=== PATIENT | male | born 1975 | race Two or more races ===

== ENCOUNTER 2017-03-13 11:23 | Day surgery (SDC) | payer OTHER, SELFPAY ==
[~2017-03-13] VITALS: Ht 188 cm; Wt 102.3 kg
[2017-03-13] MEDS ORDERED: TYLE325T5 PO (11:34)
[2017-03-13] MEDS ORDERED: NS 500 ML IV ONE (14:00)
[2017-03-13 14:07] LABS: INR 0.9
[2017-03-13 14:09] LABS: BASO % 0.4 % (0.0-1.0); EOS # 0.2 K/mm3 (0.0-0.50); EOS % 2.4 % (0.0-3.0); LARGE UNSTAINED CELL # 0.1 K/mm3 (0.0-0.4); LARGE UNSTAINED CELL % 0.7 % (0.0-4.0); LYMPH # 1.5 K/mm3 (1.5-4.5); LYMPH % 15.4 % (24.0-44.0); MEAN CORPUSCULAR HEMOGLOBIN 32.4 pg (27.0-33.0); MEAN CORPUSCULAR HGB CONC 34.2 g/dl (32.0-36.5); MEAN CORPUSCULAR VOLUME 94.7 fl (80.0-96.0); MONO # 0.4 K/mm3 (0.0-0.8); MONO % 4.2 % (0.0-5.0); NEUTROPHILS # 7.1 K/mm3 (1.8-7.7); NEUTROPHILS % 76.8 % (36.0-66.0); PLATELET COUNT, AUTOMATED 197 k/mm3 (150-450); RED CELL DISTRIBUTION WIDTH 12.8 % (11.5-14.5); WHITE BLOOD COUNT 9.2 K/mm3 (4.0-10.0)
[2017-03-13] MEDS ORDERED: MORPHINE 2 MG/ML 1ML SYRINGE IV ONE (14:15)
[2017-03-13 14:29] LABS: ALBUMIN 4.5 GM/DL (3.2-5.2); ALBUMIN/GLOBULIN RATIO 1.25 (1.00-1.93); ALKALINE PHOSPHATASE 55 U/L (45-117); ALT/SGPT 41 U/L (12-78); ANION GAP 9 MEQ/L (8-16); AST/SGOT 42 U/L (15-37); BILIRUBIN,DIRECT 0.1 MG/DL (0.0-0.2); BILIRUBIN,TOTAL 0.6 MG/DL (0.2-1.0); BLOOD UREA NITROGEN 9 MG/DL (7-18); CALCIUM LEVEL 8.4 MG/DL (8.5-10.1); CARBON DIOXIDE LEVEL 24 MEQ/L (21-32); CHLORIDE LEVEL 104 MEQ/L (98-107); CREATININE FOR GFR 0.75 MG/DL (0.70-1.30); GLOMERULAR FILTRATION RATE > 60.0 (>60); GLUCOSE, FASTING 96 MG/DL (70-105); POTASSIUM SERUM 3.7 MEQ/L (3.5-5.1); SODIUM LEVEL 137 MEQ/L (136-145); TOTAL PROTEIN 8.1 GM/DL (6.4-8.2)
[2017-03-13] MEDS ORDERED: BACITRACIN PWD 50,000 UNITS VIAL As Ordered ONE (15:46)
--- NOTE | 2017-03-13 16:54 | SMCUROLCON ---
Urology Consultation General Date of Consultation 03/13/17 Reason For Consultation This patient is seen for Penile Problem. History of Present Illness This is a 41 y/o M w/ no significant PMH, who presented to the ER today w/ complaints of penile pain and swelling. He notes that while having intercourse w/ his partner last night he felt a pop and had the onset of severe pain and swelling. He had almost immediate detumescence. He also noted blood coming from his urethral meatus. He waited to come in until today and since being in the ER he has had increased swelling and pain in the penis. All labs in the ER , including CBC, BMP, coags, and UA are unremarkable. Past Medical History Medical History None Surgical Hstory Bladder repair as a child Allergies Allergies: Coded Allergies: No Known Allergies (Unverified , 03/13/17) Review of Systems Constitutional: Denies: Chills, Fever, Malaise, Sweats, Weakness Eyes: Denies: Pain, Vision change ENT: Denies: Epistaxis, Head Aches, Sore Throat Skin: Denies: Breakdown, Lesions, Nail Changes, Rash Pulmonary: Denies: Cough, Dyspnea Cardiovascular: Denies Chest Pain, Denies Palpitations Gastrointestinal: Denies: Abdominal Pain, Nausea, Vomiting Genitourinary: Reports: Hematuria, Other Symptoms (penile pain and swelling) Hematologic: Denies: Bleeding Excessively, Bruising Musculoskeletal: Denies: Back Pain, Neck Pain Neurological: Denies: Change in Speech, Incoordination, Numbness, Weakness Psych: Reports: Mood Normal Physical Examination General Exam: : Alert: Cooperative ENT EXAM: : Atraumatic Chest Exam: : Clear to auscultation: Normal air movement Heart Exam: : Rate Normal: Regular Rhythm Abdomen Exam: : SoftNo: Tenderness Male Exam penoscrotal ecchymoses and edema; mildly tender to palpation; no blood at the meatus Skin Exam: : Nl turgor and temperature Neuro Exam: : Normal Speech Psych Exam: : Mental status NL: Mood NL Vital Signs/I&O Vital Signs Date Time Temp Pulse Resp B/P Pulse Ox O2 Delivery O2 Flow Rate FiO2 03/13/17 16:45 99.0 83 18 164/94 95 03/13/17 15:03 Room Air Laboratory Data 24H Labs Laboratory Tests 2 03/13/17 13:48: Activated Partial Thromboplast Time 28.3, Aspartate Amino Transf (AST/SGOT) 42H , Alanine Aminotransferase (ALT/SGPT) 41, Alkaline Phosphatase 55, Total Bilirubin 0.6, Direct Bilirubin 0.1, Albumin 4.5, Albumin/Globulin Ratio 1.25, Anion Gap 9, White Blood Count 9.2, Red Blood Count 4.40, Hemoglobin 14.2, Hematocrit 41.7L, Mean Corpuscular Volume 94.7, Mean Corpuscular Hemoglobin 32.4 , Mean Corpuscular Hemoglobin Concent 34.2, Red Cell Distribution Width 12.8, Platelet Count 197, Neutrophils (%) (Auto) 76.8H, Lymphocytes (%) (Auto) 15.4L, Monocytes (%) (Auto) 4.2, Eosinophils (%) (Auto) 2.4, Basophils (%) (Auto) 0.4, Neutrophils # (Auto) 7.1, Lymphocytes # (Auto) 1.5, Monocytes # (Auto) 0.4, Eosinophils # (Auto) 0.2, Basophils # (Auto) 0.0, Calcium Level 8.4L, Glomerular Filtration Rate > 60.0, Large Unclassified Cells # 0.1, Large Unclassified Cells % 0.7, Prothromb Time International Ratio 0.90, Prothrombin Time 12.3, Total Protein 8.1 03/13/17 14:59: Urine Amorphous Sediment , Urine Appearance CLEAR, Urine Color STRAW, Urine pH 5.0, Urine Specific [place] 1.005, Urine Protein NEGATIVE, Urine Glucose (UA) NEGATIVE, Urine Ketones TRACEH, Urine Urobilinogen 0.2, Urine Bilirubin NEGATIVE , Urine Leukocyte Esterase NEGATIVE, Urine Bacteria (Auto) NEGATIVE, Urine Blood 2+H, Urine Calcium Carbonate Cryst(Auto) , Urine Calcium Oxalate Cryst ( Auto) , Urine Calcium Phosphate Kathleen (Auto) , Urine Cellular Casts , Urine Cystine Crystals , Urine Granular Casts (Auto) , Urine Hyaline Casts (Auto) 0, Urine Leucine Crystals , Urine Mucus (Auto) , Urine Nitrite NEGATIVE, Urine Oval Fat Bodies (Auto) , Urine RBC (Auto) 0, Urine Renal Epithelial Cells , Urine Sperm (Auto) , Urine Squamous Epithelial Cells 0, Urine Transitional Epithelial Cells , Urine Trichomonas (Auto) , Urine Triple Phosphate Cryst (Auto ) , Urine Tyrosine Crystals , Urine Uric Acid Crystals (Auto) , Urine WBC (Auto ) 0, Urine Waxy Casts (Auto) , Urine Yeast-Like Cells (Auto) CBC/BMP Laboratory Tests 03/13/17 13:48 Red Blood Count 4.40, Mean Corpuscular Volume 94.7, Mean Corpuscular Hemoglobin 32.4, Mean Corpuscular Hemoglobin Concent 34.2, Red Cell Distribution Width 12.8 , Neutrophils (%) (Auto) 76.8 H, Lymphocytes (%) (Auto) 15.4 L, Monocytes (%) ( Auto) 4.2, Eosinophils (%) (Auto) 2.4, Basophils (%) (Auto) 0.4, Neutrophils # ( Auto) 7.1, Lymphocytes # (Auto) 1.5, Monocytes # (Auto) 0.4, Eosinophils # (Auto ) 0.2, Basophils # (Auto) 0.0 Assessment This is a 41 y/o M w/ penile swelling and pain. Given the patient's exam and history of how this happened, he likely has a penile fracture and urethral laceration. Plan - I recommended that we take the patient to the OR for penile degloving w/ closure of tunica albuginea, cystoscopy, possible repair of urethral laceration - after a discussion of the risks and benefits of the procedure, informed consent was signed - 2g ancef IV cash applications specialist to the OR - NPO until surgery YENNIFER PICKARD MD Mar 13, 2017 16:54
[2017-03-13] MEDS ORDERED: ceFAZolin 2 GM/D5W 50 ML IV BAG (J0690) As Ordered ONE (17:05)
[2017-03-13] MEDS ORDERED: dexameTHASONE 4 MG/ML 1ML VIAL (J1100) As Ordered ONE (17:38)
[2017-03-13] MEDS ORDERED: HYDROmorphone HCL 2 MG/ML 1ML VIAL (J1170) As Ordered ONE ×2 (17:38→18:58)
[2017-03-13] MEDS ORDERED: PROPOFOL 500 MG/50 ML VIAL As Ordered ONE (17:38)
[2017-03-13] MEDS ORDERED: MIDAZOLAM INJ 2 MG/2 ML VIAL (J2250) As Ordered ONE (17:38)
[2017-03-13] MEDS ORDERED: fentaNYL 100 MCG/2 ML INJECTION (J3010) As Ordered ONE ×2 (17:38→17:50)
[2017-03-13] MEDS ORDERED: ONDANSETRON 4MG/2ML VIAL (J2405) As Ordered ONE (18:24)
[2017-03-13] MEDS ORDERED: PERCOCET 5MG/325MG TAB PO PRN ×3 (19:15→19:30)
[2017-03-13] MEDS ORDERED: ONDANSETRON 4MG/2ML VIAL (J2405) IV PRN (19:15)
[2017-03-13] MEDS ORDERED: ACETAMINOPHEN TAB 650MG DOSE (2X325MG) PO PRN (19:15)
[2017-03-13] MEDS ORDERED: LR 1,000 ML IV SCH (19:30)
[2017-03-13] MEDS ORDERED: MORPHINE 2 MG/ML 1ML SYRINGE IV PRN (19:30)
[2017-03-13] MEDS ORDERED: fentaNYL 100 MCG/2 ML INJECTION (J3010) IV PRN (19:30)
[2017-03-13 19:50] VITALS: BP 158/99
[2017-03-13 20:20] VITALS: BP 153/93
[2017-03-13] MEDS ORDERED: diazePAM 5 MG TAB PO SCH (21:00)
[2017-03-13 21:20] VITALS: BP 149/86
[2017-03-13] MEDS: DOCUSATE SODIUM 100 MG CAP PO SCH (21:51)
[2017-03-13] MEDS: CEPHALEXIN 500 MG CAP PO SCH (21:51)
[2017-03-13 22:20] VITALS: BP 144/83
[2017-03-14 02:00] VITALS: BP 108/57
[2017-03-14 06:00] VITALS: BP 122/65
[2017-03-14] MEDS: CEPHALEXIN 500 MG CAP PO SCH ×2 (08:58→15:46)
[2017-03-14] MEDS: DOCUSATE SODIUM 100 MG CAP PO SCH (08:58)
--- NOTE | 2017-03-14 09:58 | IPNPDOC ---
Assessment/Plan Date Seen The patient was seen on 03/14/17. Patient Summary 41 y/o M POD1 s/p plastic operation of the penis w/ penile degloving and cystoscopy for penile fracture and urethral laceration. Doing well this morning. Plan/VTE VTE Prophylaxis Ordered?: Yes VTE Exclusion Mechanical Proph: N/A:VTE Prophy Ordered Plan/Urinary Catheter Urinary Catheter: Other Catheter: Reason for insertion/continuin: Other-document below (catheter needs to stay in to allow for healing of his urethral laceration) Plan - keep catheter to gravity - percocet prn pain - dressings to stay on for 1 more day - regular diet - social work consult - plan d/c home today w/ catheter in - patient will f/u tomorrow for dressing removal Subjective Review oF Systems Chief Complaint The patient is a 41-year-old male admitted with a reason for visit of Penile Problem. Events since Last Encounter No acute events o/n. Pain has been well-controlled w/ percocet. He denies irritation from the catheter. Objective Physical Examination General Exam: Alert, Cooperative, No Acute Distress Psych Exam: Mental status NL, Mood NL Other physical findings penoscrotal ecchymoses unchanged; Rita dressing in place w/ good glans capillary refill; catheter draining clear urine Vital Signs/I&O Vital Signs Date Time Temp Pulse Resp B/P (MAP) Pulse Ox O2 Delivery O2 Flow Rate FiO2 03/14/17 06:00 98.2 64 18 122/65 (84) 97 Room Air I&O- Last 24 Hours up to 6 AM 03/14/17 06:00 Intake Total 2040 ml Output Total 2260 ml Balance -220 ml Laboratory Data Labs 24H Laboratory Tests 2 03/13/17 13:48: White Blood Count 9.2, Red Blood Count 4.40, Hemoglobin 14.2, Hematocrit 41.7L, Mean Corpuscular Volume 94.7, Mean Corpuscular Hemoglobin 32.4, Mean Corpuscular Hemoglobin Concent 34.2, Red Cell Distribution Width 12.8, Platelet Count 197, Neutrophils (%) (Auto) 76.8H, Lymphocytes (%) (Auto) 15.4L, Monocytes (%) (Auto) 4.2, Eosinophils (%) (Auto) 2.4, Basophils (%) (Auto) 0.4, Neutrophils # (Auto) 7.1, Lymphocytes # (Auto) 1.5, Monocytes # (Auto) 0.4, Eosinophils # (Auto) 0.2, Basophils # (Auto) 0.0, Large Unclassified Cells % 0.7 , Large Unclassified Cells # 0.1, Prothrombin Time 12.3, Prothromb Time International Ratio 0.90, Activated Partial Thromboplast Time 28.3, Anion Gap 9 , Glomerular Filtration Rate > 60.0, Calcium Level 8.4L, Aspartate Amino Transf (AST/SGOT) 42H, Alanine Aminotransferase (ALT/SGPT) 41, Alkaline Phosphatase 55 , Total Bilirubin 0.6, Direct Bilirubin 0.1, Total Protein 8.1, Albumin 4.5, Albumin/Globulin Ratio 1.25 03/13/17 14:59: Urine Appearance CLEAR, Urine Color STRAW, Urine pH 5.0, Urine Specific [place] 1.005, Urine Protein NEGATIVE, Urine Glucose (UA) NEGATIVE, Urine Ketones TRACEH , Urine Urobilinogen 0.2, Urine Bilirubin NEGATIVE, Urine Leukocyte Esterase NEGATIVE, Urine Blood 2+H, Urine Nitrite NEGATIVE, Urine WBC (Auto) 0, Urine RBC (Auto) 0, Urine Hyaline Casts (Auto) 0, Urine Bacteria (Auto) NEGATIVE, Urine Squamous Epithelial Cells 0, Urine Transitional Epithelial Cells , Urine Renal Epithelial Cells , Urine Calcium Carbonate Cryst(Auto) , Urine Calcium Phosphate Kathleen (Auto) , Urine Calcium Oxalate Cryst (Auto) , Urine Leucine Crystals , Urine Cystine Crystals , Urine Uric Acid Crystals (Auto) , Urine Triple Phosphate Cryst (Auto) , Urine Tyrosine Crystals , Urine Amorphous Sediment , Urine Cellular Casts , Urine Granular Casts (Auto) , Urine Waxy Casts (Auto) , Urine Mucus (Auto) , Urine Trichomonas (Auto) , Urine Yeast-Like Cells (Auto) , Urine Sperm (Auto) , Urine Oval Fat Bodies (Auto) CBC/BMP Laboratory Tests 03/13/17 13:48 Red Blood Count 4.40, Mean Corpuscular Volume 94.7, Mean Corpuscular Hemoglobin 32.4, Mean Corpuscular Hemoglobin Concent 34.2, Red Cell Distribution Width 12.8 , Neutrophils (%) (Auto) 76.8 H, Lymphocytes (%) (Auto) 15.4 L, Monocytes (%) ( Auto) 4.2, Eosinophils (%) (Auto) 2.4, Basophils (%) (Auto) 0.4, Neutrophils # ( Auto) 7.1, Lymphocytes # (Auto) 1.5, Monocytes # (Auto) 0.4, Eosinophils # (Auto ) 0.2, Basophils # (Auto) 0.0 YENNIFER PICKARD MD Mar 14, 2017 09:58
[2017-03-14 14:00] VITALS: BP 148/97
--- NOTE | 2017-03-14 15:00 | RO ---
DATE OF PROCEDURE: 03/13/2017 PREPROCEDURE DIAGNOSIS: Penile fracture, urethral injury. POSTPROCEDURE DIAGNOSIS: Penile fracture, urethral injury. PROCEDURE: Plastic operation of the penis for injury, penile degloving, cystoscopy. SURGEON: Fredy Soto MD MARINE STRUCTURAL DESIGNER: None. ANESTHESIA: General. OPERATIVE INDICATIONS: This is a 41-year-old male who presents to the emergency room today with complaints of penile pain and swelling. He noted that while having sexual intercourse the day before, he felt a pop and immediately had detumescence with the onset of urethral bleeding and penile pain and swelling. Given the patient's history and his exam there is a significant concern for penile fracture as well as urethral injury. It was therefore, recommended that he be brought to the operating room for the above listed procedure. DESCRIPTION OF PROCEDURE: The patient was brought to the operating room, and general anesthesia was induced. Prophylactic antibiotics were infused. He was then placed in the supine position, prepped and draped in the usual sterile fashion. The first part of the procedure involved flexible cystoscopy. At this point, a flexible cystoscope was inserted into the urethral meatus and advanced forward. Within the distal penile urethra, there was an approximately 0.5 cm laceration seen at the 12-o'clock position. I advanced the cystoscope further into the urethra and into the bladder, and no additional urethral injuries were seen. There were no abnormalities in the bladder. I then pulled the cystoscope back out and looked at the injury again. Once again, it was approximately 0.5 cm in the distal penile urethra and it was noted to be at the 12-o'clock position. At this point, the cystoscope was removed and then a circumcising incision was made just proximal to the glans along the skin of the shaft. At this point, the skin of the shaft was dissected and was ultimately dissected away from the penis until the penis was completely degloved. At this point, the penis was then carefully examined and I could not locate a laceration on the tunica albuginea of the corporal bodies. I injected normal saline into one of the corporal bodies to given an artificial erection, and I did not see any saline come out of the corporal bodies. After carefully looking again and confirming that I could not see a laceration to the albuginea, I examined the urethra as well and I could not see a laceration from the outside of the urethra either. This was not surprising considering the laceration was at the 12-o'clock position, which is where the urethra sits in between the corporal bodies. I suspect that the tunica albuginea laceration is also in the location where the urethra sits nested in between the corporal bodies, and this is why I could not find the laceration during the procedure. I did not proceed to dissect the urethra away from the corporal bodies as I felt this could result in more potential damage than good. At this point, I checked for hemostasis and any areas of bleeding was controlled with electrocautery. I then pulled the skin of the shaft back up to the glans and then reapproximated the skin to the glans using interrupted #2-0 chromic sutures. These sutures were placed circumferentially around the glans. Once this was done , dressings were applied including a Rita wrapped around the penis and then a [place] dressing wrapped around the top of that. Once this was done, this marked the conclusion of the procedure. Of note, a #16-English Felder catheter was placed into the bladder after the cystoscopy was performed at the beginning of the procedure. This catheter was connected to gravity drainage and was left in at the end of the procedure. At this point, the patient was awakened from anesthesia and transported to the recovery room in stable condition. ESTIMATED BLOOD LOSS: 10 mL INTRAOPERATIVE COMPLICATIONS: None SPECIMENS: None PLAN: The patient's catheter will be left in place for approximately 2 weeks to allow healing of the urethral injury. Regarding the tunica albuginea laceration, this should also heal with time. I will take the dressings off in a few days and once again leave the catheter in for 2 weeks. I will followup with either cystoscopy or retrograde urethrogram to confirm that the urethral injury is healed. MELANIE
[2017-03-14] MEDS ORDERED: KEFL500C7 PO (16:22)
[2017-03-14] MEDS ORDERED: OXYC1TAB23 PO (16:22)
[2017-03-14] MEDS ORDERED: VALI5TAB PO (16:22)
== END 2017-03-14 16:47 | disposition home or self-care (01) ==
LOC: M ED 12:32 → M OROP 16:54 → M MSPAV 19:49 → M OROP 03-14 16:47
PROVIDERS: ATTEND Urology
DX: S39.840A Fracture of corpus cavernosum penis, initial encounter (principal); S37.30XA Unspecified injury of urethra, initial encounter; F17.210 Nicotine dependence, cigarettes, uncomplicated; Y92.9 Unspecified place or not applicable; Y93.89 Activity, other specified
CPT/HCPCS: 52000; 54440; 80048; 80076; 81001; 85025; 85610; 85730; 96374; 99284; J0690; J1100; J1170; J2250; J2405; J3010

== ENCOUNTER → 2017-05-15 | Outpatient (REF) | payer SELFPAY ==
[~2017-05-15] MED LIST: KEFL500C17 PO; OXYC1TAB23 PO; TYLE325T5 PO; VALI5TAB PO
== END ==
LOC: M SMT 17:08
PROVIDERS: ATTEND Urology
DX: S39.840S Fracture of corpus cavernosum penis, sequela (principal); N37 Urethral disorders in diseases classified elsewhere

== ENCOUNTER → 2021-02-02 | Outpatient (REF) | payer SELFPAY ==
[2021-02-02 17:12] LABS: BASO # 0.1 10^3/uL (0.0-0.2); EOS # 0.1 10^3/uL (0.0-0.5); EOS % 1.9 % (0.0-3.0); HEMATOCRIT 41.5 % (42.0-52.0); HEMOGLOBIN 14.2 g/dl (13.5-17.5); LYMPH # 1.6 10^3/uL (1.5-5.0); LYMPH % 26.3 % (24.0-44.0); MEAN CORPUSCULAR HEMOGLOBIN 32.3 pg (27.0-33.0); MEAN CORPUSCULAR HGB CONC 34.2 g/dl (32.0-36.5); MEAN CORPUSCULAR VOLUME 94.5 fl (80.0-96.0); MONO # 0.5 10^3/uL (0.0-0.8); MONO % 8.4 % (2.0-8.0); NEUTROPHILS # 3.9 10^3/uL (1.5-8.5); NEUTROPHILS % 62.2 % (36.0-66.0); PLATELET COUNT, AUTOMATED 215 10^3/uL (150-450); RED BLOOD COUNT 4.39 10^6/uL (4.30-6.10); WHITE BLOOD COUNT 6.2 10^3/uL (4.0-10.0)
[2021-02-02 17:30] LABS: ALBUMIN 4.4 GM/DL (3.2-5.2); ALT/SGPT 44 U/L (12-78); BILIRUBIN,TOTAL 0.4 MG/DL (0.2-1.0); BLOOD UREA NITROGEN 11 MG/DL (7-18); CALCIUM LEVEL 9.4 MG/DL (8.5-10.1); CARBON DIOXIDE LEVEL 28 MEQ/L (21-32); CHLORIDE LEVEL 103 MEQ/L (98-107); CHOLESTEROL LEVEL 215 MG/DL (<200); CHOLESTEROL RISK RATIO 3.412 (<5); CREATININE FOR GFR 0.96 MG/DL (0.70-1.30); GLOMERULAR FILTRATION RATE > 60.0 (>60); GLUCOSE, FASTING 79 MG/DL (70-100); HDL CHOLESTEROL 63 MG/DL (>40); LDL CHOLESTEROL 89 MG/DL (<100); NON-HDL-C 152 MG/DL; POTASSIUM SERUM 4.3 MEQ/L (3.5-5.1); SODIUM LEVEL 137 MEQ/L (136-145); THYROID STIMULATING HORMONE 0.754 uIU/ML (0.358-3.740); TOTAL PROTEIN 7.5 GM/DL (6.4-8.2); TRIGLYCERIDES LEVEL 313 MG/DL (<150)
[2021-02-02 18:08] LABS: HEPATITIS C VIRUS ABY INDEX < 0.0 INDEX (<0.8); HIV 1&2 SCREEN CENTAUR NEGATIVE (NEGATIVE)
== END ==
LOC: M LAB REF 16:16
PROVIDERS: ATTEND Physician Assistant
DX: Z11.4 Encounter for screening for human immunodeficiency virus [HIV] (principal); R03.0 Elevated blood-pressure reading, without diagnosis of hypertension

== ENCOUNTER 2023-04-23 13:31 | Emergency (ER) | payer SELFPAY ==
[~2023-04-23] VITALS: Ht 188 cm; Wt 101.3 kg
[2023-04-23 15:03] LABS: RSV AMPLIFICATION NEGATIVE (NEGATIVE)
[2023-04-23] MEDS ORDERED: IPRATROPIUM 0.5MG/ALBUTEROL 2.5MG INH SOL UD 3ML (DUONEB) NEB ONE (15:35)
[2023-04-23] MEDS ORDERED: methylPREDNISolone 125MG 2ML VIAL IV ONE (15:35)
[2023-04-23 15:59] LABS: BASO # 0.1 10^3/uL (0.0-0.2); BASO % 0.6 % (0.0-1.0); EOS % 0.2 % (0.0-3.0); LYMPH # 1.7 10^3/uL (1.5-5.0); LYMPH % 18.5 % (24.0-44.0); MEAN CORPUSCULAR HEMOGLOBIN 31.8 pg (27.0-33.0); MEAN CORPUSCULAR HGB CONC 34.9 g/dl (32.0-36.5); MEAN CORPUSCULAR VOLUME 91.3 fl (80.0-96.0); MONO # 0.6 10^3/uL (0.0-0.8); MONO % 6.4 % (2.0-8.0); NEUTROPHILS # 6.6 10^3/uL (1.5-8.5); PLATELET COUNT, AUTOMATED 227 10^3/uL (150-450); RED BLOOD COUNT 4.71 10^6/uL (4.30-6.10); WHITE BLOOD COUNT 8.9 10^3/uL (4.0-10.0)
[2023-04-23 16:23] LABS: ALBUMIN 4.6 G/DL (3.2-5.2); ALKALINE PHOSPHATASE 63 U/L (46-116); ALT/SGPT 37 U/L (7.0-40); AST/SGOT 31 U/L (<34); BILIRUBIN,DIRECT 0.2 MG/DL (<0.4); BILIRUBIN,TOTAL 0.6 MG/DL (0.3-1.2); BLOOD UREA NITROGEN 8 MG/DL (9-23); CALCIUM LEVEL 8.8 MG/DL (8.5-10.1); CARBON DIOXIDE LEVEL 25 MMOL/L (20-31); CHLORIDE LEVEL 106 MMOL/L (98-107); CREATININE FOR GFR 0.73 MG/DL (0.70-1.30); GLOMERULAR FILTRATION RATE > 60.0 (>60); GLUCOSE, FASTING 94 MG/DL (60-100); POTASSIUM SERUM 3.5 MMOL/L (3.5-5.1); SODIUM LEVEL 140 MMOL/L (136-145); TOTAL PROTEIN 7.7 G/DL (5.7-8.2)
[2023-04-23] MEDS ORDERED: VENTAER INH (17:32)
[2023-04-23] MEDS ORDERED: BENZ200C70 PO (17:33)
[2023-04-23 17:51] VITALS: BP 140/80
== END 2023-04-23 17:54 | disposition home or self-care (01) ==
LOC: M ED 13:31
DX: J06.9 Acute upper respiratory infection, unspecified (principal); I45.10 Unspecified right bundle-branch block; F12.10 Cannabis abuse, uncomplicated; F10.10 Alcohol abuse, uncomplicated; Z79.52 Long term (current) use of systemic steroids; Z79.899 Other long term (current) drug therapy
CPT/HCPCS: 71046; 80048; 80076; 85025; 87486; 87581; 87631; 87633; 87798; 93005; 94640; 96374; 99284; J2930

== ENCOUNTER 2024-01-13 10:41 | Emergency (ER) | payer BC, SELFPAY ==
[~2024-01-13] VITALS: Ht 185.4 cm; Wt 104.5 kg
[~2024-01-13 10:41] MED LIST changes: +BENZ200C70 PO; +VENTAER INH
[2024-01-13] MEDS ORDERED: IBUP200C25 PO (10:50)
[2024-01-13] MEDS: LIDOCAINE 5% (LIDODERM) PATCH TD ONE (11:56)
[2024-01-13] MEDS: CYCLOBENZAPRINE 10MG TABLET PO ONE (11:56)
[2024-01-13] MEDS: KETOROLAC 60MG 2ML VIAL IM ONE (11:57)
[2024-01-13] MEDS ORDERED: CYCL-707 PO (12:50)
[2024-01-13] MEDS ORDERED: LIDO5DIS41 TOP (12:50)
[2024-01-13] MEDS ORDERED: KETO10TAB PO (12:50)
[2024-01-13 13:50] VITALS: BP 168/94; TEMP 97.4; O2SAT 97
== END 2024-01-13 13:52 | disposition home or self-care (01) ==
LOC: M ED 10:41
DX: M62.830 Muscle spasm of back (principal); X50.0XXA Overexertion from strenuous movement or load, initial encounter; F17.200 Nicotine dependence, unspecified, uncomplicated; F10.10 Alcohol abuse, uncomplicated; F12.10 Cannabis abuse, uncomplicated; Y92.9 Unspecified place or not applicable; Y93.89 Activity, other specified; Y99.0 Civilian activity done for income or pay; Z79.52 Long term (current) use of systemic steroids; Z79.899 Other long term (current) drug therapy
CPT/HCPCS: 96372; 99283; J1885

== ENCOUNTER 2024-08-01 10:11 | Emergency (ER) | payer BC ==
[~2024-08-01] VITALS: Ht 188 cm; Wt 97.1 kg
[~2024-08-01 10:11] MED LIST changes: +CYCL-707 PO; +IBUP200C25 PO; +KETO10TAB PO; +LIDO5DIS41 TOP
[2024-08-01 10:12] VITALS: TEMP 96.6
[2024-08-01 11:49] LABS: BASO # 0.1 10^3/uL (0.0-0.2); BASO % 0.7 % (0.0-1.0); EOS # 0.1 10^3/uL (0.0-0.5); EOS % 0.7 % (0.0-3.0); HEMATOCRIT 42.3 % (42.0-52.0); HEMOGLOBIN 14.8 g/dl (13.5-17.5); LYMPH # 1.5 10^3/uL (1.5-5.0); LYMPH % 18.9 % (24.0-44.0); MEAN CORPUSCULAR HEMOGLOBIN 32.2 pg (27.0-33.0); MONO # 0.6 10^3/uL (0.0-0.8); MONO % 7.4 % (2.0-8.0); NEUTROPHILS # 5.5 10^3/uL (1.5-8.5); PLATELET COUNT, AUTOMATED 234 10^3/uL (150-450); WHITE BLOOD COUNT 7.7 10^3/uL (4.0-10.0)
[2024-08-01 11:53] LABS: APPEARANCE, URINE CLEAR (CLEAR); BACTERIA, URINE AUTO NEGATIVE (NEGATIVE); BILIRUBIN, URINE AUTO NEGATIVE (NEGATIVE); BLOOD, URINE BLOOD NEGATIVE (NEGATIVE); COLOR, URINE STRAW (YELLOW); GLUCOSE, URINE (UA) AUTO NEGATIVE (NEGATIVE); KETONE, URINE AUTO NEGATIVE (NEGATIVE); LEUKOCYTE ESTERASE, URINE AUTO NEGATIVE (NEGATIVE); NITRITE, URINE AUTO NEGATIVE (NEGATIVE); PROTEIN, URINE AUTO NEGATIVE (NEGATIVE); RBC, URINE AUTO 0 /HPF (0-3); SPECIFIC GRAVITY URINE AUTO 1.002 (1.002-1.035); SQUAMOUS EPITHELIAL CELL UR AU 0 /HPF (0-6); UROBILINOGEN, URINE AUTO 0.2 mg/dL (0.0-2.0); WBC, URINE AUTO 0 /HPF (0-3)
[2024-08-01 12:20] LABS: ALBUMIN 4.7 G/DL (3.2-5.2); ALKALINE PHOSPHATASE 57 U/L (46-116); ALT/SGPT 42 U/L (7.0-40); AST/SGOT 35 U/L (<34); BILIRUBIN,DIRECT 0.2 MG/DL (<0.4); BILIRUBIN,TOTAL 0.8 MG/DL (0.3-1.2); BLOOD UREA NITROGEN 10 MG/DL (9-23); CALCIUM LEVEL 9.8 MG/DL (8.5-10.1); CARBON DIOXIDE LEVEL 28 MMOL/L (20-31); CHLORIDE LEVEL 104 MMOL/L (98-107); CREATININE FOR GFR 0.82 MG/DL (0.70-1.30); GLOMERULAR FILTRATION RATE > 60.0 (>56); GLUCOSE, FASTING 101 MG/DL (60-100); POTASSIUM SERUM 4.2 MMOL/L (3.5-5.1); SODIUM LEVEL 138 MMOL/L (136-145); TOTAL PROTEIN 7.8 G/DL (5.7-8.2)
[2024-08-01 13:44] LABS: MAGNESIUM LEVEL 2.2 MG/DL (1.8-2.4)
[2024-08-01 13:45] VITALS: O2SAT 99
[2024-08-01] MEDS ORDERED: HOLTER MONITOR XX (13:50)
[2024-08-01 13:52] VITALS: BP 144/86
== END 2024-08-01 14:19 | disposition home or self-care (01) ==
LOC: M ED 10:11
DX: I10 Essential (primary) hypertension (principal); R00.2 Palpitations; I45.10 Unspecified right bundle-branch block; I44.4 Left anterior fascicular block; F12.10 Cannabis abuse, uncomplicated; F10.10 Alcohol abuse, uncomplicated; Z79.52 Long term (current) use of systemic steroids; Z79.1 Long term (current) use of non-steroidal anti-inflammatories (NSAID); Z79.899 Other long term (current) drug therapy

== ENCOUNTER → 2024-08-04 | Outpatient (CLI) | payer BC ==
[~2024-08-04] MED LIST changes: +HOLTER MONITOR XX
== END ==
LOC: M EKG 11:52
PROVIDERS: ATTEND Emergency Medicine
DX: R00.2 Palpitations (principal)

== ENCOUNTER → 2024-08-13 | Outpatient (REF) | payer BC ==
[2024-08-13 17:22] LABS: CREATININE, URINE 56.8 MG/DL
[2024-08-13 17:23] LABS: MALB URINE SIEMENS < 3.0 MG/L; MAU/CREAT RATIO 5.2 MCG/MG (0.0-30.0)
[2024-08-13 17:52] LABS: ALBUMIN 4.4 G/DL (3.2-5.2); ALKALINE PHOSPHATASE 55 U/L (46-116); ALT/SGPT 36 U/L (7.0-40); AST/SGOT 37 U/L (<34); BILIRUBIN,TOTAL 0.6 MG/DL (0.3-1.2); BLOOD UREA NITROGEN 11 MG/DL (9-23); CALCIUM LEVEL 9.7 MG/DL (8.5-10.1); CARBON DIOXIDE LEVEL 30 MMOL/L (20-31); CHLORIDE LEVEL 106 MMOL/L (98-107); CHOLESTEROL LEVEL 228 MG/DL (<200); CHOLESTEROL RISK RATIO 3.35 (<5); CREATININE FOR GFR 0.86 MG/DL (0.70-1.30); GLOMERULAR FILTRATION RATE > 60.0 (>56); GLUCOSE, FASTING 88 MG/DL (60-100); LDL CHOLESTEROL 144.8 MG/DL (<100); POTASSIUM SERUM 4.3 MMOL/L (3.5-5.1); SODIUM LEVEL 137 MMOL/L (136-145); TOTAL PROTEIN 7.4 G/DL (5.7-8.2); TRIGLYCERIDES LEVEL 76 MG/DL (<150)
[2024-08-13 17:53] LABS: THYROID STIMULATING HORMONE 1.224 uIU/ML (0.55-4.78)
[2024-08-13 17:54] LABS: FOLATE > 24.0 NG/ML (>5.4); TOTAL 25(OH) VITAMIN D 23.1 NG/ML (20.0-100.0); VITAMIN B12 LEVEL 432 PG/ML (211-911)
[2024-08-13 18:55] LABS: HEMOGLOBIN A1c 5.4 % (4.0-6.0)
== END ==
LOC: M LAB REF 16:09
PROVIDERS: ATTEND Physician Assistant
DX: I10 Essential (primary) hypertension (principal); E55.9 Vitamin D deficiency, unspecified; F10.10 Alcohol abuse, uncomplicated

== ENCOUNTER → 2025-01-07 | Outpatient (CLI) | payer BC | LOC: M RAD 15:13 | PROVIDERS: ATTEND Physician Assistant | DX: Z12.2 Encounter for screening for malignant neoplasm of respiratory organs (principal); F17.211 Nicotine dependence, cigarettes, in remission ==

== ENCOUNTER 2025-02-04 10:34 | Day surgery (SDC) | payer BC ==
[~2025-02-04] VITALS: Ht 185.4 cm; Wt 99.7 kg
[~2025-02-04 10:34] MED LIST changes: +LOSA100T46 PO; +MULT1TAB8 PO
[2025-02-04] MEDS ORDERED: propofoL 200 MG/20 ML VIAL As Ordered ONE (11:21)
[2025-02-04] MEDS ORDERED: LIDOCAINE 2% 100MG/5ML SDV (FOR ANES.) As Ordered ONE (11:21)
[2025-02-04 12:08] VITALS: TEMP 98.1
[2025-02-04 12:29] VITALS: BP 143/88; O2SAT 99
== END 2025-02-04 12:33 | disposition home or self-care (01) ==
LOC: M OPP 10:34
PROVIDERS: ATTEND Surgery
DX: Z12.11 Encounter for screening for malignant neoplasm of colon (principal); D12.3 Benign neoplasm of transverse colon; D12.7 Benign neoplasm of rectosigmoid junction; K57.30 Diverticulosis of large intestine without perforation or abscess without bleeding; K64.8 Other hemorrhoids; Z79.899 Other long term (current) drug therapy; Z87.891 Personal history of nicotine dependence

== ENCOUNTER 2025-11-09 10:40 | Emergency (ER) | payer BC ==
[~2025-11-09] VITALS: Ht 185.4 cm; Wt 102.4 kg
[~2025-11-09 10:40] MED LIST changes: +LIDO1ADH93 TOP; -LIDO5DIS41 TOP
[2025-11-09 11:04] VITALS: BP 132/74; TEMP 97.9; O2SAT 98
[2025-11-09] MEDS ORDERED: AMLO1TAB24 (11:11)
== END 2025-11-09 14:11 | disposition left against medical advice (07) ==
LOC: M ED 10:40
DX: Z53.21 Procedure and treatment not carried out due to patient leaving prior to being seen by health care provider (principal)